=== PATIENT | male | born 1950 | race Hispanic/Latino ===

== ENCOUNTER → 2023-07-01 | Emergency (ER) | payer OTHER ==
--- OUTSIDE RECORDS SUMMARY | 2023-07-01 12:57 | XMS REPORT | Continuity of Care Document ---
Author Name Unknown Address [address] [facility] [address] [id number] [facility] thconnect Address [address] [facility]. [address] [place] [address] Care Team Providers Care Staff Interpreter Name Role Phone Nurse, [facility] Urgent Attending Clinician GLORIA Yang Attending Clinician Unavailable Lab, Adc Fam Pob I Attending Clinician Gloria Calvo Attending Clinician Doctor Unassigned, [place] Attending Clinician U navailable Payers Payer Name Policy Type Policy Number Effective Date Expirati on Date Source Allergies, Adverse Reactions, Alerts Allergy Name Allergy Type Status Severity Reaction(s) Onset Date Inactive Date Treating Clinician Comments Source NO KNOWN ALLERGIE S Drug Class Active [facility] Social History Social Habit Start Date Stop Date Quantity Comments Source Exposure to SARS-CoV-2 (event) Yes [facility] Sex Assigned At [facility] Smoking Status Start Date Stop Date Source Unknown if ever smoked [facility] Encounters Start Date/Time End Date/Time Encounter Type Admission Type Attending Clinicians Care Facility Care Department Encounter ID Source 2023-07-01 12:44:50 2023-07-01 12:44:50 Outpatient [facility] [id number] Redd Tobar 2023-05-31 16:10:18 2023-05-31 16:10:18 Outpatient SFA SFA [id number] Redd Chavarria Amadou 2022-11-23 10:06:56 2022-11-23 10:06:56 Outpatient SFA SFA [id number] Redd Tobar 2022-11-22 10:45:23 2022-11-22 10:45:23 Outpatient SFA SFA [id number] Redd Tobar 2020-01-25 00:00:00 2020-01-25 00:00:00 Telephone Nurse, Bayron [facility] [id number] [facility] 2020-01-23 16:20:00 2020-01-23 16:20:00 Outpatient R [facility] [id number] [facility] 2020-01-23 13:08:42 2020-01-23 13:28:42 Laboratory Only Lab[facility] [id number] [facility] 2020-01-23 00:00:00 2020-01-23 00:00:00 Letter (Out) Doctor Unassigned, Roth[place] [facility] [id number] [facility] 2020-01-21 10:09:31 2020-01-21 10:30:49 Laboratory Only Lab, [facility] Arnie Stallings [facility] Office [facility] [id number] [facility] 2020-01-21 10:20:00 2020-01-21 10:20:00 Outpatient R [facility] [id number] [facility] Results Test Description Test Time Test Comments Results Result Co mments Source HEMOGLOBIN [id number] 01:40:41* Test Item Value Reference Range Interpretation Comme nts HEMOGLOBIN A1c (test code = 57370) 6.7 % 4.2-5.6 H [employer] GUIDELINES FOR HGB A1C: PREDIABETES/INCREASED RISK . . . . . . . 5.7-6.4% DIAGNOSIS OF DIABETES . . . . . . . . . >=6.5% WITH CONFIRMATION OR APPROPRIATE SYMPTOMS NOTE: ASSAY MAY BE AFFECTED BY HEMOGLOBINOPATHIES (SICKLE CELL ANEMIA, S-C DISEASE, OTHERS) OR ARTIFICIALLY LOWERED BY DECREASED RED CELL SURVIVAL (HEMOLYTIC ANEMIAS, BLOOD LOSS, ETC.). CONSIDER ALTERNATE TESTING OR LABORATORY CONSULTATION.
--- NOTE | 2023-07-01 15:03 | RAD REPORT ---
EXAM DESCRIPTION: USExtcolt Venous Uni Ltd07/01/2023 2:35 pm CLINICAL HISTORY: Right leg pain COMPARISON: None. FINDINGS: Right common femoral, superficial femoral, greater saphenous, popliteal and right posterio r tibial veins are compressible and demonstrate augmentation. Doppler demonstrates good flow. Grayscale, color and spectral analysis performed on all vessels IMPRESSION: No evidence of deep venous thrombosis involving the right lower extremity.
--- NOTE | 2023-07-01 15:17 | ER ---
Nurse's Notes [facility] Name: Jeremy Morelos Age: 72 yrs Sex: Male : 1950 Arrival Date: 07/01/2023 Time: 12:54 Bed IW1 Private MD: Diagnosis: Cellulitis of right lower limb Presentation: 07/01 13:35 Chief complaint: Patient states: Right leg pain since yesterday, redness noticed nj1 yesterday on lower leg. Coronavirus screen: Vaccine status: Patient reports receiving the 2nd dose of the covid vaccine. Ebola Screen: Patient denies travel to an Ebola-affected area in the 21 days before illness onset. Initial Sepsis Screen: Does the patient meet any 2 criteria? No. Patient's initial sepsis screen is negative. Does the patient have a suspected source of infection? Yes: Skin breakdown/wound. Risk Assessment: Do you want to hurt yourself or someone else?. Onset of symptoms was June 30, 2023. 13:35 Method Of Arrival: Ambulatory nj 13:35 Acuity: CARI 3 nj1 Historical: - Allergies: 13:39 No Known Allergies; nj1 - PMHx: 13:39 Diabetes mellitus; Hypertensive disorder; Hypercholesterolemia; nj1 - Immunization history:: Client reports receiving the 2nd dose of the Covid vaccine. - Social history:: Smoking status: Patient denies any tobacco usage or history of. Vital Signs: 13:35 BP 140 / 86; Pulse 77; Resp 18; Temp 98.2(TE); Pulse Ox 96% ; Weight 88 kg; Height 5 nj1 ft. 1 in. ; Pain 8/10; 13:35 Body Mass Index 36.63 (88.00 kg, 155 cm) nj1 13:35 Pain Scale: Adult nj1 ED Course: 12:58 Patient arrived in ED. ts1 13:04 Adela Shook FNP-C is PHCP. kb 13:04 Gino Weaver MD is Attending Physician. kb 13:39 Triage completed. nj1 13:39 Arm band placed on right wrist. nj1 14:37 US Extremity Venous Unilateral Ltd In Process Unspecified. EDMS Administered Medications: No medications were administered Outcome: 15:16 Discharge ordered by . kb 16:23 Patient left the ED. hb Signatures: Dispatcher [employer] EDMS Adela Shook OIL DELIVERER-C OIL DELIVERER-Ckb Sharita Strickland, RN RN hb Mis Nunez RN RN nj1 Marianna Brown, [facility] ts1
--- NOTE | 2023-07-01 15:17 | EDPHYS ---
Physician Documentation [facility] Name: Jeremy Morelos Age: 72 yrs Sex: Male : 1950 Arrival Date: 07/01/2023 Time: 12:54 Bed IW1 Private MD: ED Physician Gino Weaver HPI: 07/01 15:15 This 72 yrs old Male presents to ER via Ambulatory with complaints of Leg kb Pain, Leg Swelling. 15:15 Patient is a 72-year-old male who presents for redness, warmth, swelling and pain to kb right lower extremity that started yesterday. Denies fever.. Historical: - Allergies: 13:39 No Known Allergies; nj1 - PMHx: 13:39 Diabetes mellitus; Hypertensive disorder; Hypercholesterolemia; nj1 - Immunization history:: Client reports receiving the 2nd dose of the Covid vaccine. - Social history:: Smoking status: Patient denies any tobacco usage or history of. ROS: 15:14 Constitutional: Negative for fever, chills, and weight loss, kb 15:14 MS/extremity: Positive for erythema, pain, swelling, tenderness, warmth, of the right gamboa, 15:14 All other systems are negative, Exam: 15:14 Constitutional: This is a well developed, well nourished patient who is awake, alert, kb and in no acute distress. Head/Face: Normocephalic, atraumatic. ENT: Moist Mucous membranes Cardiovascular: Regular rate Respiratory: Respirations even and unlabored. No increased work of breathing. Talking in full sentences MS/ Extremity: Pulses equal, no cyanosis. Neurovascular intact. Full, normal range of motion. Neuro: Awake and alert, GCS 15, oriented to person, place, time, and situation. Moves all extremities. Normal gait. 15:14 Skin: cellulitis, that is mild, on the right gamboa, Vital Signs: 13:35 BP 140 / 86; Pulse 77; Resp 18; Temp 98.2(TE); Pulse Ox 96% ; Weight 88 kg; Height 5 nj1 ft. 1 in. ; Pain 8/10; 13:35 Body Mass Index 36.63 (88.00 kg, 155 cm) [facility] 13:35 Pain Scale: Adult nj MDM: 13:05 Patient medically screened. kb 15:14 Differential diagnosis: DVT, cellulitis, abscess. Data reviewed: vital signs, nurses kb notes. Test considered but Not performed: Labs: CBC, CMP considered but results would not change course of treatment. Patient is afebrile, nontoxic in appearance with stable vital signs. Will prescribe outpatient antibiotics and patient given strict return precautions.. Counseling: I had a detailed discussion with the patient and/or guardian regarding the historical points, exam findings, and any diagnostic results supporting the discharge/admit diagnosis, radiology results, the need for outpatient follow up, a family practitioner, to return to the emergency department if symptoms worsen or persist or if there are any questions or concerns that arise at home. 07/01 13:38 Order name: US Extremity Venous Unilateral Ltd; Complete Time: 15:04 kb Administered Medications: No medications were administered Disposition Summary: 07/01/23 15:16 Discharge Ordered Notes: Location: Home kb Condition: Stable kb Diagnosis - Cellulitis of right lower limb kb Followup: kb - With: Emergency Department - When: As needed - Reason: Worsening of condition Followup: kb - With: Private Physician - When: 2 - 3 days - Reason: Recheck today's complaints, Continuance of care, Re-evaluation by your physician Discharge Instructions: - Discharge Summary Sheet kb - Cellulitis, Adult, [id number] kb Forms: - Medication Reconciliation Form kb - Thank You Letter kb - Antibiotic Education kb - Prescription Opioid Use kb - Patient Portal Instructions kb - Leadership Thank You Letter kb Prescriptions: - Cephalexin 500 mg Oral Capsule - take 1 capsule ORAL route every 8 hours for 10 days; 30 capsule; Refills: 0, kb Product Selection Permitted - Bactrim DS 800-160 mg Oral Tablet - take 1 tablet ORAL route every 12 hours for 10 days; 20 tablet; Refills: 0, kb Product Selection Permitted Signatures: Dispatcher [employer] Adela Velásquez, BED OPERATOR-C BED OPERATORMis Ulrich, RN RN nj1
[2023-07-01 16:36] VITALS: BP 140/86; TEMP 98.2; O2SAT 96
== END ==
LOC: ER 12:54
DX: L03.115 Cellulitis of right lower limb (principal)
CPT/HCPCS: 93971; 99281